=== PATIENT | female | born 1995 | race Caucasian/White ===

== ENCOUNTER 2016-12-17 12:24 | Emergency (ER) | payer BC ==
--- NOTE | ~2016-12-17 | EKG ---
PATIENT: HUMA MCHUGH UNIT #: [id number] Ventricular Rate: 71 BPM Atrial Rate: 71 BPM P-R Interval: 126 ms QRS Duration: 78 ms Q-T Interval: 394 ms QTC Calculation(Bezet): 428 ms P Velarde: -8 degrees Calculated R Velarde: 59 degrees Calculated T Velarde: 23 degrees Diagnosis Line: Normal sinus rhythm with sinus arrhythmia Diagnosis Line: Normal ECG Diagnosis Line: Diagnosis Line: Confirmed by CARLA VALLEJO MD ([id number]) on 12/19/2016 Diagnosis Line: 9:35:58 AM INTERPRETING MD: YONI BECKWITH
--- NOTE | ~2016-12-17 | CT71 ---
[facility] A Service of [facility] RADIOLOGY TEXT RESULTS PATIENT: HUMA MCHUGH LOCATION: SED : [birth year] UNIT #: [id number] AGE: [address]: Magdaleno House MD SEX: F ORDER DR: [id number] [address] [address] [id number] MR#: [id number] Acc #: [id number] NAME: HUMA WINSLOW : 1995 SEX: F STUDY DATE/TIME: 12/17/2016 12:43 UNIT: SED ROOM: STUDY DESCRIPTION: CT Head Wo Contrast Attending Physician: Magdaleno House M.D. Ordering Physician: Magdaleno House M.D. Primary Care Physician: Primary Care Physician No MEDICAL IMAGING REPORT This report is preliminary unless electronic signature is present. EXAM CT of the head 12/17/2016 HISTORY Posterior head pain, headache. Syncope x2 last night, x1 today at 9 a.m[address] Possible seizure. TECHNIQUE CT head performed skull base through vertex without intravenous contrast. No prior CTs of head for comparison. This CT examination was performed with one or more of the following radiation dose reduction techniques: automatic exposure control, adjustment of mA and/or kV according to patient size, and iterative reconstruction. FINDINGS The brainstem is unremarkable. The cerebellum and cerebral hemispheres show normal enriquez matter-white matter differentiation. No hemorrhage. No evidence of acute cortical ischemia. Midline structures are nondisplaced. Basal ganglia intact. Ventricles, cisterns and sulci normal in size and contour. No intra- or extraaxial mass effect. No abnormal intracranial fluid collection. The intraorbital soft tissues show questionable soft tissue density structure on a single image along the posteromedial left retina (image 2). This is seen on only 1 image and could be artifactual. Given appearance, retinal mass lesion or irregularity is to be excluded and correlation with ophthalmologic examination is strongly recommended. There is no intra- or extraaxial mass lesion or abnormal intracranial fluid collection. The visualized paranasal sinuses and mastoid air cells are clear. No fracture. No traumatic extracranial soft tissue abnormality. IMPRESSION 1. The brain appears normal. If the patient has ongoing neurologic STS. [facility] A Service of [facility] RADIOLOGY TEXT RESULTS PATIENT: HUMA MCHUGH LOCATION: SED : [birth year] UNIT #: [id number] AGE: [address]: Magdaleno House MD SEX: F ORDER DR: symptoms or if this is a new onset of seizures in this patient, further assessment with MRI, specifically seizure protocol MRI, would be recommended if the patient is a candidate. 2. On a single image through the left orbit, there is a 7-8 mm irregularity, soft tissue density, along the posteromedial left retina. It is possible that this is artifact. True retinal abnormality is to be excluded. Correlation with ophthalmologic examination recommended. 3. No fracture. Dictated by... Bandar Humphreys M.D. THIS IS AN ELECTRONICALLY VERIFIED REPORT Bandar Humphreys M.D. at 12/18/2016 9:16 AM DEANDRE/janina TD: 12/17/2016 13:28 JOB #: [id number] MEDICAL IMAGING REPORT Page 1 of 1
[2016-12-17 12:06] LABS: BASOPHIL# 0.1 X10e3 (0-0.3); BASOPHIL% 0.9 % (0-2.5); EOSINOPHIL% 0.5 % (0.0-7.0); HEMATOCRIT 40.3 % (35.0-45.0); HEMOGLOBIN 13.6 gm/dL (12.0-16.0); LYMPHOCYTE# 2.5 X10e3 (1.0-3.5); LYMPHOCYTE% 32.4 % (17.0-45.0); MEAN CELL VOLUME 94.3 FL (83-96); MEAN CORPUSCULAR HEMOGLOBIN 31.8 PG (28-34); MEAN CORPUSCULAR HGB CONC 33.7 g/dL (30-36); MONOCYTE# 0.5 X10e3 (0-1.0); NEUTROPHIL# 4.7 X10e3 (1.5-7.1); NEUTROPHIL% 60.2 % (40-75); PLATELET COUNT 319 X10e3 (140-420); RED BLOOD COUNT 4.28 X10e (3.90-5.30); RED CELL DISTRIBUTION WIDTH 12.9 % (11.0-15.5); WHITE BLOOD COUNT 7.8 X10e3 (4.0-10.5)
[2016-12-17 12:16] LABS: DIFF IND NO
[2016-12-17 12:24] LABS: ALBUMIN SERUM 4.7 g/dL (3.5-5.0); BILIRUBIN, DIRECT 0.1 mg/dL (0.0-0.2); BILIRUBIN,INDIRECT 0.7 mg/dL (0.0-0.9); BILIRUBIN,TOTAL 0.8 mg/dL (0.2-2.0); CREATININE SERUM 0.6 mg/dL (0.6-1.4); GLOM FILT RATE Estimated 129.4 mL/min (>60); POTASSIUM 3.9 mmol/L (3.5-5.1)
[~2016-12-17 12:24] MED LIST: CELEXA PO; FLEXERIL10 MG PO; IBUPROFEN PO; MOTRIN600 MG PO; NO MEDICATIONS; SUDAFED30 M1 PO; TYLENOL WITH CODEINE PO; ZITHROMAX PO
[2016-12-17 13:14] LABS: AMPHETAMINE NEG (NEG); BARBITURATES NEG (NEG); BENZODIAZEPINES NEG (NEG); COCAINE NEG (NEG); MARIJUANA POS (NEG); OPIATES NEG (NEG); TRICYCLIC ANTIDEPRESSANTS NEG (NEG); U METHADONE NEG (NEG)
== END 2016-12-17 14:54 | disposition home or self-care (01) ==
LOC: SED 12:24
PROVIDERS: Emergency Medicine
DX: R55 Syncope and collapse (principal); F41.9 Anxiety disorder, unspecified; F17.200 Nicotine dependence, unspecified, uncomplicated
CPT/HCPCS: 36415; 70450; 80048; 80076; 80307; 84703; 85025; 93005; 99284; 99285